=== PATIENT | female | born 1995 | race Native Hawaiian/Other Pacific Islander ===

== ENCOUNTER 2017-03-06 15:34 | Emergency (ER) | payer SELFPAY ==
[~2017-03-06] VITALS: Ht 149.9 cm; Wt 46.4 kg
[~2017-03-06 15:34] MED LIST: CEPH500C3 PO; DILA2TAB2 PO; HYDR-3533 PO; IBUP800T23 PO
[2017-03-06 15:36] VITALS: BP 125/75; PULSE 104; RESP 20; TEMP 98.1; O2SAT 97
--- NOTE | 2017-03-06 16:11 | PD ---
HPI Chief Complaint: Abdominal Pain Time Seen by Provider: 16:11 Travel History International Travel<30 days: No Contact w/Intl Traveler<30days: No Traveled to known affect area: No History of Present Illness HPI 22-year-old female presents to the emergency Department with complaint of mid abdominal pain for the past 3-4 days. Reports vomiting on Wednesday twice and then once yesterday morning. Denies hemoptysis. Denies fever, diarrhea. Says the pain is like a nerve pain. Last menstrual period was February 25 or . Denies change in stool or urine. Denies dysuria. The smell of meat and left he smells makes her symptoms worse. No relieving factors known. Symptoms are mild in severity. Denies allergies. Does not have an established primary care provider. Denies past medical history. Denies tobacco use, illicit drug use. Reports occasional alcohol use. Has no other medical complaints. No known allergies. No other modifying factors or associated signs and symptoms. PFSH Past Medical History Diminished Hearing: No Reproductive: Yes (CHLAMYDIA) Immunizations Current: Yes Tetanus Vaccination: Unknown ?: Not LMP: 02/26/17 : 0 Past Surgical History Other Surgery: Yes (jett eye muscle correction surgery.) Social History Alcohol Use: Yes (OCCASIONAL) Tobacco Use: No Substance Use: No Allergies-Medications (Allergen,Severity, Reaction): Coded Allergies: No Known Allergies (Unverified , 03/06/17) Reported Meds & Prescriptions Reported Meds & Active Scripts Active Zantac 150 Maximum Strength (Ranitidine HCl) 150 Mg Tab 150 Mg PO BID 30 Days Review of Systems Except as stated in HPI: all other systems reviewed are Neg Physical Exam Narrative GENERAL: Well-nourished, well-developed female patient, in no acute distress; afebrile, nontoxic-appearing SKIN: Warm and dry. HEAD: Atraumatic. Normocephalic. EYES: Pupils equal and round. No scleral icterus. No injection or drainage. ENT: Mucosa pink and moist. Airway patent. NECK: Trachea midline. CARDIOVASCULAR: Regular rate and rhythm. No murmur appreciated. RESPIRATORY: No accessory muscle use. Clear to auscultation. Breath sounds equal bilaterally. GASTROINTESTINAL: Abdomen soft, tenderness to the epigastric and right upper quadrant, nondistended. Hepatic and splenic margins not palpable. Bowel sounds are active 4 quadrants. Nondistended. No guarding. MUSCULOSKELETAL: No obvious deformities. No clubbing. No cyanosis. No edema. NEUROLOGICAL: Awake and alert. Oriented 3. No obvious cranial nerve deficits. Motor grossly within normal limits. Normal speech. PSYCHIATRIC: Appropriate mood and affect; insight and judgment normal. Data Data Last Documented VS Vital Signs Date Time Temp Pulse Resp B/P Pulse Ox O2 Delivery O2 Flow Rate FiO2 03/06/17 19:18 73 20 105/60 98 03/06/17 15:36 98.1 Room Air Orders Complete Blood Count With Diff (03/06/17 16:11) Comprehensive Metabolic Panel (03/06/17 16:11) Lipase (03/06/17 16:11) Urinalysis - C+S If Indicated (03/06/17 16:11) Us Abdomen Gallbladder (03/06/17 ) Iv Access Insert/Monitor (03/06/17 16:11) Ecg Monitoring (03/06/17 16:11) Oximetry (03/06/17 16:11) Sodium Chloride 0.9% Flush (Ns Flush) (03/06/17 16:15) Ed Urine Pregnancytest Poc (03/06/17 16:11) Sodium Chlor 0.9% 1000 Ml Inj (Ns 1000 M (03/06/17 18:00) Al-Mag Hy-Si 40-40-4 Mg/Ml Liq (Mag-Al P (03/06/17 18:00) Pbgqj-Afcbbt-Mirdvy-Pb Liq ( Liq (03/06/17 18:00) Lidocaine 2% Viscous (Xylocaine 2% Visco (03/06/17 18:00) Potassium Chloride (Kcl) (03/06/17 18:00) Labs Laboratory Tests Test 03/06/17 16:30 White Blood Count 8.1 TH/MM3 Red Blood Count 4.79 MIL/MM3 Hemoglobin 13.5 GM/DL Hematocrit 40.2 % Mean Corpuscular Volume 83.8 FL Mean Corpuscular Hemoglobin 28.3 PG Mean Corpuscular Hemoglobin 33.7 % Concent Red Cell Distribution Width 13.8 % Platelet Count 238 TH/MM3 Mean Platelet Volume 9.0 FL Neutrophils (%) (Auto) 66.9 % Lymphocytes (%) (Auto) 23.9 % Monocytes (%) (Auto) 7.5 % Eosinophils (%) (Auto) 1.2 % Basophils (%) (Auto) 0.5 % Neutrophils # (Auto) 5.4 TH/MM3 Lymphocytes # (Auto) 1.9 TH/MM3 Monocytes # (Auto) 0.6 TH/MM3 Eosinophils # (Auto) 0.1 TH/MM3 Basophils # (Auto) 0.0 TH/MM3 CBC Comment DIFF FINAL Differential Comment Urine Color YELLOW Urine Turbidity HAZY Urine pH 6.0 Urine Specific [place] 1.027 Urine Protein TRACE mg/dL Urine Glucose (UA) NEG mg/dL Urine Ketones 10 mg/dL Urine Occult Blood NEG Urine Nitrite NEG Urine Bilirubin NEG Urine Urobilinogen LESS THAN 2.0 MG/DL Urine Leukocyte Esterase NEG Urine RBC 1 /hpf Urine WBC 3 /hpf Urine Squamous Epithelial 10 /hpf Cells Urine Bacteria RARE /hpf Urine Mucus FEW /lpf Microscopic Urinalysis Comment CULT NOT INDICATED Sodium Level 143 MEQ/L Potassium Level 3.3 MEQ/L Chloride Level 107 MEQ/L Carbon Dioxide Level 28.0 MEQ/L Anion Gap 8 MEQ/L Blood Urea Nitrogen 23 MG/DL Creatinine 0.99 MG/DL Estimat Glomerular Filtration 70 ML/MIN Rate Random Glucose 79 MG/DL Calcium Level 8.9 MG/DL Total Bilirubin 0.3 MG/DL Aspartate Amino Transf 14 U/L (AST/SGOT) Alanine Aminotransferase 16 U/L (ALT/SGPT) Alkaline Phosphatase 42 U/L Total Protein 7.8 GM/DL Albumin 4.1 GM/DL Lipase 147 U/L [facility] Medical Decision Making Medical Screen Exam Complete: Yes Emergency Medical Condition: Yes Medical Record Reviewed: Yes Differential Diagnosis Gastritis, GERD, cholelithiasis, cholecystitis Narrative Course 22-year-old female with epigastric and right upper quadrant abdominal pain. Labs, UPT, urinalysis and gallbladder ultrasound ordered. 1748: UPT negative. CBC unremarkable. Potassium 3.3. Potassium Chloride 20Meq ordered. NS bolus administered. GI cocktail ordered. Zantac prescribed for home. Instructed patient to follow up with primary care provider. Patient verbalizes understanding and agreement with treatment plan. Patient is medically cleared and stable for discharge. Discussed reasons to return to the emergency department. Patient agrees with treatment plan. The patients vital signs are stable and the patient is stable for outpatient follow-up and treatment. Patient discharged home, stable and in no acute distress. Diagnosis Primary Impression: Gastritis Qualified Code: K29.70 - Gastritis without bleeding, unspecified chronicity, unspecified gastritis type Referrals: Primary Care Physician Patient Instructions: Gastritis (ED), General Instructions Additional Instructions: [id number] Maalox as directed and as needed for symptom management Zantac as prescribed and as needed for symptom management Avoid aggravating foods and drinks Follow-up with primary care provider Return to the emergency department immediately with worsening of symptoms Med/Other Pt SpecificInfo: Prescription(s) given Scripts Ranitidine (Zantac 150 Maximum Strength)150 Mg [id number] Mg PO BID 30 Days Prov:Lisa Barcenas 03/06/17 Disposition: 01 DISCHARGE HOME Condition: Stable Lisa Barcenas Mar 06, 2017 16:11
[2017-03-06] MEDS ORDERED: SODIUM CHLORIDE 0.9% FLUSH 10 ML FLUSH IV FLUSH PRN (16:15)
[2017-03-06 16:43] VITALS: BP 99/62; PULSE 67; RESP 18; O2SAT 97
[2017-03-06 16:45] LABS: AUTOMATED NEUTROPHIL # 5.4 TH/MM3 (1.8-7.7); BASOPHIL % 0.5 % (0.0-2.0); EOSINOPHIL # 0.1 TH/MM3 (0-0.4); EOSINOPHIL % 1.2 % (0.0-4.0); HEMATOCRIT 40.2 % (35.0-46.0); HEMO FLAGS DIFF FINAL; LYMPH % 23.9 % (9.0-44.0); LYMPHOCYTE # 1.9 TH/MM3 (1.0-4.8); MEAN CELL VOLUME 83.8 FL (80.0-100.0); MEAN CORPUSCULAR HEMOGLOBIN 28.3 PG (27.0-34.0); MEAN CORPUSCULAR HGB CONC 33.7 % (32.0-36.0); MONO % 7.5 % (0.0-8.0); NEUT % 66.9 % (16.0-70.0); PLATELET COUNT 238 TH/MM3 (150-450); RED BLOOD COUNT 4.79 MIL/MM3 (4.00-5.30); RED CELL DISTRIBUTION WIDTH 13.8 % (11.6-17.2); WHITE BLOOD COUNT 8.1 TH/MM3 (4.0-11.0)
[2017-03-06 16:52] LABS: BACTERIA, URINE RARE /hpf; BLOOD, URINE NEG (NEG); COMMENT (UR) CULT NOT INDICATED; CULTURE IF INDICATED CULT NOT INDICATED; GLUCOSE,URINE NEG (NEG); KETONE, URINE 10 mg/dL (NEG); MUCUS URINE FEW /lpf (OCC); NITRITE,URINE NEG (NEG); SQUAMOUS EPITHELIAL CELL URINE 10 /hpf (0-5); URINE COLOR YELLOW (YELLW/STRAW)
--- NOTE | 2017-03-06 17:01 | RADRPT ---
EXAM DATE/TIME: 03/06/2017 16:25 [facility] COMPARISON: No previous studies available for comparison. INDICATIONS : Right upper quadrant pain. MEDICAL HISTORY : Chlamydia. SURGICAL HISTORY : Bilateral eye muscle surgery. ENCOUNTER: Initial ACUITY: 2 days PAIN SCORE: 2/10 LOCATION: Right upper quadrant MEASUREMENTS: LIVER: 12.3 cm length COMMON DUCT: 4 mm RIGHT KIDNEY: 9.2 x 4.2 x 3.6 cm FINDINGS: LIVER: Normal echotexture without focal lesion or ductal dilatation. COMMON DUCT: No intraluminal mass or stone visualized. GALLBLADDER: Contains no stones, demonstrates no wall thickening or pericholecystic fluid. PANCREAS: The visualized portions are within normal limits. RIGHT KIDNEY: No evidence of hydronephrosis, stone, or mass. CONCLUSION: Normal examination. Reed Austin MD on March 06, 2017 at 16:59 Board Certified Radiologist. This report was verified electronically.
[2017-03-06 17:08] LABS: ANION GAP 8 MEQ/L (5-15); AST (GOT) 14 U/L (15-37); BLOOD UREA NITROGEN 23 MG/DL (7-18); CHLORIDE 107 MEQ/L (98-107); GLOMERULAR FILTRATION RATE 70 ML/MIN (>89); POTASSIUM 3.3 MEQ/L (3.5-5.1); SODIUM (NA) 143 MEQ/L (136-145)
[2017-03-06 17:11] LABS: ALKALINE PHOSPHATASE 42 U/L (45-117); ALT (GPT) 16 U/L (10-53); TOTAL BILIRUBIN ADULT 0.3 MG/DL (0.2-1.0)
[2017-03-06] MEDS ORDERED: ZANTTAB PO (17:55)
[2017-03-06] MEDS ORDERED: POTASSIUM CHLORIDE 20 MEQ CONTROLLED RELEASE TAB PO ONE (18:00)
[2017-03-06] MEDS ORDERED: SODIUM CHLOR 0.9% 1000 ML INJ 1,000 ML IV ONE (18:00)
[2017-03-06] MEDS ORDERED: LIDOCAINE VISCOUS 2% SOLN 15 ML UDC SWISH-SWAL ONE (18:00)
[2017-03-06] MEDS ORDERED: ALUMINUM/MAGNESIUM/SIMETH 30 ML CUP PO ONE (18:00)
[2017-03-06] MEDS ORDERED: ATROPINE/SCOPOLAM/HYOSCYAM/PB ELIXIR 10 ML CUP PO ONE (18:00)
[2017-03-06 19:18] VITALS: BP 105/60
== END 2017-03-06 20:00 | disposition home or self-care (01) ==
LOC: NEPD 15:34
DX: K29.70 Gastritis, unspecified, without bleeding (principal)
CPT/HCPCS: 76705; 80053; 81001; 83690; 84703; 85025; 96360; 99285; J7030